=== PATIENT | female | born 1960 | race Caucasian/White ===

== ENCOUNTER → 2016-06-23 | Outpatient (CLI) | payer MEDICARE, BC ==
[2013-10-27 22:15] VITALS: BP 129/87
--- NOTE | 2016-06-23 12:52 | RAD ---
Indication: Abdominal pain and bloating. Time of exam 12:46 PM No free air is identified. There are surgical clips in the right abdomen. The bowel gas pattern is nonspecific. There are mildly prominent small bowel loops in the central abdomen with scattered air-fluid levels present. The colon is decompressed. No pathologic conditions are seen. Impression: Nonspecific bowel gas pattern with mild prominence of small bowel loops and scattered air-fluid levels. Early or partial small bowel obstruction cannot be entirely excluded and progress films could be obtained.
== END | disposition home or self-care (01) ==
LOC: DXRADRC 12:35
PROVIDERS: ATTEND Nurse Practitioner Family
DX: R10.9 Unspecified abdominal pain (principal); R14.0 Abdominal distension (gaseous)
CPT/HCPCS: 74020

== ENCOUNTER → 2016-06-26 | Outpatient (CLI) | payer MEDICARE, BC, OTHER ==
[2013-10-27 22:15] VITALS: BP 129/87
--- NOTE | 2016-06-26 15:32 | RAD ---
Indication: Bloating and abdominal discomfort. Time of exam 1422 hours. Moderate stool in the colon is noted. The small bowel is nondilated. No free air is seen. No pathologic calcifications are identified. There are surgical clips in the right abdomen. Impression: No acute feature is detected.
== END | disposition home or self-care (01) ==
LOC: DXRADRC 14:08
PROVIDERS: ATTEND Nurse Practitioner Family
DX: R14.0 Abdominal distension (gaseous) (principal); R19.7 Diarrhea, unspecified
CPT/HCPCS: 74020

== ENCOUNTER → 2016-12-03 | Outpatient (CLI) | payer MEDICARE, BC ==
[2013-10-27 22:15] VITALS: BP 129/87
--- NOTE | 2016-12-03 08:17 | RAD ---
2 Views of the Chest 12/03/2016 2:00 AM Indication: CHEST CONGESTION W NON PROD COUGH, HX OF COPD Comparison: Chest radiograph December 03, 2015 Findings: There is no pneumothorax or pleural effusion. There is diffuse interstitial coarsening,, with mild apical lucency. Right apical scarring appears to be present.. Linear atelectasis in left lung base is improved in the interim. No new focal consolidation is seen. Heart size is within normal limits. No acute osseous changes are identified. Impression: 1. No evidence of acute cardiopulmonary process or acute change from prior exam 2. Diffuse interstitial coarsening, and mild apical lucency, similar to prior studies. Findings could reflect COPD as stated in patient's history.
== END | disposition home or self-care (01) ==
LOC: DXRADRC 08:04
PROVIDERS: ATTEND Physician Assistant Medical
DX: J98.4 Other disorders of lung (principal); R09.89 Other specified symptoms and signs involving the circulatory and respiratory systems; R05 Cough; J44.9 Chronic obstructive pulmonary disease, unspecified
CPT/HCPCS: 71020

== ENCOUNTER → 2017-05-26 | Outpatient (CLI) | payer MEDICARE, BC ==
[2013-10-27 22:15] VITALS: BP 129/87
--- NOTE | 2017-05-26 13:43 | RAD ---
Chest, 2 views, 05/26/2017: History: Cough Comparison is made to a study from 12/03/2016. The heart size is normal. The pulmonary markings remain mildly prominent suggesting scarring. No acute infiltrate is seen. There is no evidence of pleural fluid. IMPRESSION: No acute cardiopulmonary abnormality is detected.
== END | disposition home or self-care (01) ==
LOC: PMG 11:22
PROVIDERS: ATTEND Nurse Practitioner Family
DX: J43.9 Emphysema, unspecified (principal)
CPT/HCPCS: 71046

== ENCOUNTER → 2018-11-01 | Outpatient (CLI) | payer MEDICARE, BC, OTHER ==
[2013-10-27 22:15] VITALS: BP 129/87
--- NOTE | 2018-11-02 11:11 | RAD ---
KNEE RIGHT 2V History: Right knee pain Comparison: None. Findings: 2 views of the right knee are submitted. There is moderate osteoarthritic change of the lateral compartment of the right knee, more prominent osteophytes of the femur. No acute fracture or dislocation is identified. Patella is somewhat high riding. Impression: 1. There is moderate osteoarthritic change of the lateral compartment of the right knee. Patella is somewhat high riding. Electronically signed by: Sly Hurley MD (11/02/2018 11:09 AM) [id number]
== END | disposition home or self-care (01) ==
LOC: RAD 17:33
PROVIDERS: ATTEND Registered Nurse
DX: M17.11 Unilateral primary osteoarthritis, right knee (principal)
CPT/HCPCS: 73560

== ENCOUNTER → 2018-11-02 | Outpatient (CLI) | payer MEDICARE, BC, OTHER ==
[2013-10-27 22:15] VITALS: BP 129/87
--- NOTE | 2018-11-02 17:00 | RAD ---
Right extremity nonvascular ultrasound History: Right posterior knee pain Comparison: None. Findings: Multiple sonographic images directed toward the posterior right knee region are submitted. There is a fluid collection in the right popliteal fossa about 5.3 x 2 x 1.7 cm, not associated with significant vascularity. Impression: 1. There is avascular, nonspecific right popliteal fossa fluid collection. Electronically signed by: Sly Hurley MD (11/02/2018 4:57 PM) [id number]
== END | disposition home or self-care (01) ==
LOC: US 14:51
PROVIDERS: ATTEND Registered Nurse
DX: M25.861 Other specified joint disorders, right knee (principal)
CPT/HCPCS: 76881